=== PATIENT | male | born 1965 | race Caucasian/White ===

== ENCOUNTER 2016-10-24 14:41 | Emergency (ER) | payer BC ==
[~2016-10-24] VITALS: Wt 70.0 kg
[~2016-10-24 14:41] MED LIST: DIPH1TAB PO; MESA800T2 PO; UDLOM GTB
[2016-10-24 15:09] VITALS: BP 102/77; PULSE 97; RESP 16; TEMP 98.9
[2016-10-24] MEDS ORDERED: SOD CHLORIDE 0.9% 1,000 ML IV STA (15:17)
[2016-10-24] MEDS ORDERED: DICYCLOMINE 20 MG INJ IM ONE (15:30)
--- NOTE | 2016-10-24 15:59 | ERD ---
ER Documentation Chief Complaint Date/Time DATE: 10/24/16 TIME: 15:57 Chief Complaint BLOOD IN STOOL FOR A FEW WKS. ABD PAIN , AND FEVER HPI 50-year-old male history of ulcerative colitis who presents the emergency room with generalized malaise, occasional bloody stools, abdominal cramping and subjective fever for approximately 2 weeks. The patient states this is very similar to ulcerative colitis flare in the past. He states that he follows up with the GI doctor but has not seen a doctor since 2013. He follows up with the primary care doctor. In the past steroids have helped these symptoms. He denies any syncope lightheadedness or dizziness. ROS All systems reviewed and are negative except as per history of present illness. Medications Home Meds Active Scripts Prednisone* (Prednisone*) 20 Mg Tab, 40 MG PO DAILY for 7 Days, TAB Prov:MARCO GABRIEL MD 10/24/16 Dicyclomine Hcl* (Bentyl*) 10 Mg Capsule, 10 MG PO QID Y for abdominal cramping , #20 CAP Prov:MARCO GABRIEL MD 10/24/16 Reported Medications Mesalamine* (Asacol HD) 800 Mg Tablet.dr, 1600 MG PO TID, TAB 10/24/16 Discontinued Scripts Diphenoxylate HCl/Atropine (Lomotil 2.5-0.025 mg Tablet) 1 Each Tablet, 1 TAB PO QID Y for DIARRHEA, #30 TAB Prov:ANNMARIE BEEBE 04/12/16 Diphenoxylate Hcl-Atropine* (Lomotil*) 5 Ml Soln, 5 ML GTB Q6H Y for DIARRHEA, # 30 ML Prov:YANCY MALLOY DO 04/11/16 Mesalamine* (Asacol HD) 800 Mg Tablet., 1800 MG PO TID for 28 Days, TAB Prov:YANCY MALLOY DO 04/10/16 Allergies Allergies: Coded Allergies: No Known Allergy (Unverified , 10/24/16) PMhx/Soc History of Surgery: No Anesthesia Reaction: No Hx Neurological Disorder: No Hx Respiratory Disorders: No Hx Cardiac Disorders: No Hx Psychiatric Problems: No Hx Miscellaneous Medical Probl: Yes (COLITIS ) Hx Alcohol Use: No Hx Substance Use: No Hx Tobacco Use: No FmHx Family History: No diabetes Physical Exam Vitals Vital Signs Date Time Temp Pulse Resp B/P Pulse Ox O2 Delivery O2 Flow Rate FiO2 10/24/16 15:09 98.9 97 16 102/77 93 Room Air 10/24/16 14:46 98.8 111 21 108/65 97 Physical Exam General: Well developed, well nourished, no acute distress Head: Normocephalic, atraumatic. Eyes: Pupils equally reactive, EOM intact ENT: Moist mucous membranes Neck: Supple, no lymphadenopathy Respiratory: Lungs clear bilaterally, no distress Cardiovascular: RRR, no murmurs, rubs, or gallops Abdominal: Soft, non-tender, non-distended, no peritoneal signs : Deferred MSK: No edema, no unilateral swelling, 5/5 strength Neurologic: Alert and oriented, moving all extremities, normal speech, no focal weakness, no cerebellar signs Skin: No rash Psych: Normal mood Result Diagram: 10/24/16 1605 10/24/16 1605 Results 24 hrs Laboratory Tests Test 10/24/16 16:05 Anion Gap 14 Basophils # 0.010^3/ul Basophils % 0.1% Blood Urea Nitrogen 16mg/dl Calcium Level 8.4mg/dl Carbon Dioxide Level 25mmol/L Chloride Level 103mmol/L Creatinine 1.03mg/dl Eosinophils # 0.010^3/ul Eosinophils % 0.3% Glucose Level 134mg/dl Hematocrit 36.1% Hemoglobin 12.0g/dl Lymphocytes # 1.010^3/ul Lymphocytes % 8.0% Mean Corpuscular Hemoglobin 25.7pg Mean Corpuscular Hemoglobin Concent 33.2g/dl Mean Corpuscular Volume 77.3fl Mean Platelet Volume 9.4fl Monocytes # 0.810^3/ul Monocytes % 6.2% Neutrophils # 10.410^3/ul Neutrophils % 84.8% Nucleated Red Blood Cells # 0.010^3/ul Nucleated Red Blood Cells % 0.0/100WBC Platelet Count 94833^3/UL Potassium Level 4.1mmol/L Red Blood Count 4.6710^6/ul Red Cell Distribution Width 16.6% Sodium Level 138mmol/L White Blood Count 12.310^3/ul Current Medications Medications (Trade) Dose Ordered Sig/Joey Route PRN Reason Start Time Stop Time Status Last Admin Dose Admin Sodium Chloride (NS) 1,000 ml @ 1,000 mls/hr Q1H STAT IV 10/24/16 15:17 10/24/16 16:16 DC 10/24/16 16:13 Dicyclomine HCl (Bentyl) 10 mg ONCE ONCE IM 10/24/16 15:30 10/24/16 15:31 DC 10/24/16 16:29 Procedures/MDM EKG, MONITORS, & DIAGNOSTIC IMAGING: Acute abdominal series: Free Air: [None] Bowel Gas: [Nonspecific] Soft Tissue: [Normal] LAB INTERPRETATION: Very subtle leukocytosis of 12, hemoglobin stable MEDICAL DECISION MAKING: The patient presents with signs and symptoms consistent with ulcerative colitis flare. The patient describes subjective fevers but has a benign abdominal exam. He is afebrile here. I have a very low clinical concern for abscess or microperforation. X-ray imaging would be reasonable. I would like to avoid unnecessary CT imaging therefore if the patient does not have a significant leukocytosis CT avoidance would be appropriate. I do believe the patient would benefit from a short course of steroids. I have attempted to reach out to the patient's GI provider but they have not seen the patient since 2013. I was able to speak to the patient's primary care physician Dr. Black. He feels that the patient would benefit from a short course of steroids and he can follow-up with the patient is office within the next week. ER COURSE: Leukocytosis to be expected. Repeat abdominal exam benign. Patient continues to be well-appearing. No indication for CT imaging. Patient's primary care physician is agreeable to follow-up in a short course. The patient will be given a steroid dose for 7 days. No indication for antibiotics currently. Return precautions discussed with the patient. I kept the patient and/or family informed of laboratory and diagnostic imaging results throughout the emergency room course. DISPOSITION PLAN: We discussed follow up with the patient's primary care doctor within 24 to 48 hours as needed. We also discussed return to the emergency room for worsening symptoms or worsening condition. Discharge Medications: Bentyl, prednisone Departure Diagnosis: Primary Impression: Ulcerative colitis with rectal bleeding Ulcerative colitis location: unspecified ulcerative colitis location Qualified Code: K51.911 - Ulcerative colitis with rectal bleeding, unspecified location Additional Impression: Abdominal pain Abdominal location: generalized Qualified Code: R10.84 - Generalized abdominal pain Condition: MARCO Henriquez MD Mar 13, 2017 15:59
--- NOTE | 2016-10-24 16:13 | RADRPT ---
PROCEDURE: XR Abdomen CLINICAL INDICATION: Abdominal pain TECHNIQUE: AP supine and upright radiographs of the abdomen were submitted COMPARISON: None FINDINGS: The bowel gas pattern is unremarkable. No free air is identified. No organomegaly or discrete mass is evident. No pathological calcification is identified. The osseous elements appear unremarkable. IMPRESSION: Nonspecific abdomen Physician Jose Date Time Electronically viewed and signed by Zuleika Urrutia Physician on 10/24/2016 16:12 RH/
[2016-10-24 16:14] LABS: ADD SCAN DIFF NO
[2016-10-24 16:16] LABS: BASOPHILS % 0.1 % (0.0-2.0); EOSINOPHILS % 0.3 % (0.0-7.0); HEMATOCRIT 36.1 % (42.0-52.0); MEAN CORPUSCULAR HEMOGLOBIN 25.7 pg (29.0-33.0); MEAN CORPUSCULAR HGB CONC 33.2 g/dl (32.0-37.0); MEAN CORPUSCULAR VOLUME 77.3 fl (82.0-101.0); MEAN PLATELET VOLUME 9.4 fl (7.4-10.4); MONOCYTE # 0.8 10^3/ul (0.3-0.9); MONOCYTES % 6.2 % (0.0-11.0); NEUTROPHIL # 10.4 10^3/ul (1.6-7.5); NEUTROPHILS % 84.8 % (39.0-77.0); PLATELET COUNT 240 10^3/UL (140-415); RED BLOOD COUNT 4.67 10^6/ul (4.70-6.10); RED CELL DISTRIBUTION WIDTH 16.6 % (11.5-14.5); WHITE BLOOD COUNT 12.3 10^3/ul (4.8-10.8)
[2016-10-24] MEDS ORDERED: DICY10CA60 PO (16:27)
[2016-10-24] MEDS ORDERED: PRED20TA PO (16:27)
[2016-10-24 16:45] LABS: POTASSIUM 4.1 mmol/L (3.5-5.1)
[2016-10-24 16:48] LABS: CALCIUM 8.4 mg/dl (8.4-10.2); CREATININE 1.03 mg/dl (0.61-1.24)
[2016-10-24] MEDS ORDERED: MESA800T2 PO (16:55)
== END 2016-10-24 17:13 | disposition home or self-care (01) ==
LOC: E/R 14:41
DX: K51.911 Ulcerative colitis, unspecified with rectal bleeding (principal); R10.84 Generalized abdominal pain; R40.2142 Coma scale, eyes open, spontaneous, at arrival to emergency department; R40.2252 Coma scale, best verbal response, oriented, at arrival to emergency department; R40.2362 Coma scale, best motor response, obeys commands, at arrival to emergency department
CPT/HCPCS: 36415; 74010; 80048; 85025; 96372; 99285; J0500; J7030